=== PATIENT | male | born 1945 | race Caucasian/White ===

== ENCOUNTER 2018-05-01 06:33 | Emergency (ER) | payer MEDICARE ==
[~2018-05-01] VITALS: Ht 177.8 cm; Wt 113.4 kg
[2018-05-01] MEDS ORDERED: ZESTORETIC 20-121 EA PO (06:49)
[2018-05-01] MEDS ORDERED: ROSU10TA PO (06:50)
[2018-05-01] MEDS ORDERED: ALLO100 PO (06:50)
[2018-05-01] MEDS ORDERED: Percocet 10-321 EACH PO (07:58)
[2018-05-01] MEDS ORDERED: PRED10 PO (07:58)
== END 2018-05-01 08:03 | disposition home or self-care (01) ==
LOC: ER 06:33
DX: M25.522 Pain in left elbow (principal); I10 Essential (primary) hypertension; Z88.0 Allergy status to penicillin; Z79.899 Other long term (current) drug therapy; Z79.52 Long term (current) use of systemic steroids
CPT/HCPCS: 20605; 73070; 99283-25

== ENCOUNTER 2019-09-23 08:46 | Day surgery (SDC) | payer MEDICARE ==
[~2019-09-23] VITALS: Ht 172.7 cm; Wt 110.0 kg
[~2019-09-23 08:46] MED LIST: ALLO100 PO; Aspirin EC81 MG PO; INDOCIN PO; Norco 5-325 Ta1 EACH PO; ONDA4ODT MM; PRED10 PO; PROSTATE PLUS PO; Percocet 10-321 EACH PO; ROSU10TA PO; ROSU5 PO; SILD25T PO; ZESTORETIC 20-1 EACH PO; ZESTORETIC 20-121 EA PO
--- NOTE | 2019-09-23 13:18 | NUR ---
REPORT FROM WANDA GARCIA RN. Dressing to procedure site clean, dry, intact with no visible drainage, swelling, erythema or bruising noted. OFFERED FOOD AND FLUID
--- NOTE | 2019-09-23 13:59 | NUR ---
PT STATES NORCO DOESN'T WORK WELL, CAUSES NAUSEA. CALL OUT TO DR MOJICA. DR MOJICA IN TO SEE PATIENT WROTE A SCRIPT FOR PERCOCET. Dressing to procedure site clean, dry, intact with no visible drainage, swelling, erythema or bruising noted. SCROTAL SUPPORT PROVIDED. Discharge instructions reviewed with patient. Patient verbalizes understanding. Copy given to patient to take home. Patient States Post-Procedure ride home has been arranged. Discharged via wheelchair to private car for ride home. [facility] BELONIGNS RETURNED TO [facility].
--- NOTE | 2019-09-23 14:34 | NUR ---
1420- PT DRESSED, AMBULATED TO BATHROOM TO VOID. Discharged via wheelchair to private car for ride home.
== END 2019-09-23 22:39 | disposition home or self-care (01) ==
LOC: ORSCMMR 08:46 → ORD 10:45 → ORSCMMR 22:39
PROVIDERS: Surgery
PROC: 0YU50JZ Supplement Right Inguinal Region with Synthetic Substitute, Open Approach (ICD-10-PCS; principal; 2019-09-23 10:45)
DX: K40.90 Unilateral inguinal hernia, without obstruction or gangrene, not specified as recurrent (principal); I10 Essential (primary) hypertension; I25.10 Atherosclerotic heart disease of native coronary artery without angina pectoris; I25.2 Old myocardial infarction; E66.01 Morbid (severe) obesity due to excess calories; Z68.36 Body mass index [BMI] 36.0-36.9, adult; Z79.899 Other long term (current) drug therapy; Z79.82 Long term (current) use of aspirin
CPT/HCPCS: A9270-GY; C1781; J0690; J1100; J2250; J2370; J2405; J2704; J2765; J3010; J7120